=== PATIENT | female | born 1970 | race Caucasian/White ===

== ENCOUNTER 2020-08-01 11:33 | Emergency (ER) | payer MEDICAID ==
[~2020-08-01] VITALS: Ht 170.2 cm; Wt 51.9 kg
[2020-08-01 12:31] VITALS: BP 145/80
[2020-08-01] MEDS ORDERED: TETanus/Pertussis (Acell)/Diphther VAC/PF (Tdap-Adult) 0.5ml syringe IMVAC ONE (13:25)
[2020-08-01] MEDS ORDERED: LIDOcaine 1% W/epiNEPHrine 1:200,000 10ml vial IJ ONE (13:25)
[2020-08-01] MEDS ORDERED: LIDOcaine 1% w/epiNEPHrine 1:200,000 30ml vial IJ ONE (13:30)
[2020-08-01] MEDS ORDERED: SULF1TAB49 PO (13:50)
[2020-08-01] MEDS ORDERED: CEPH500C5 PO (13:50)
[2020-08-01] MEDS ORDERED: IBUP-1985 PO (14:49)
--- NOTE | 2020-08-01 15:04 | NUR ---
Patient seen and assessed by provider.
== END 2020-08-01 15:02 | disposition home or self-care (01) ==
LOC: ER 11:34
DX: L02.512 Cutaneous abscess of left hand (principal)
CPT/HCPCS: 26010; 90471; 90715; 99283

== ENCOUNTER 2021-03-30 13:03 | Emergency (ER) | payer MEDICAID ==
[~2021-03-30] VITALS: Ht 172.7 cm; Wt 53.1 kg
[~2021-03-30 13:03] MED LIST: CEPH-585 PO; IBUP-1985 PO
[2021-03-30 13:21] VITALS: BP 105/60
== END 2021-03-30 16:41 | disposition left against medical advice (07) ==
LOC: ER 13:03
DX: R52 Pain, unspecified (principal); Z53.21 Procedure and treatment not carried out due to patient leaving prior to being seen by health care provider